=== PATIENT | male | born 1985 | race Caucasian/White ===

== ENCOUNTER 2017-03-26 06:55 | Emergency (ER) | payer BC ==
[~2017-03-26] VITALS: Ht 188 cm; Wt 145.7 kg
[2017-03-26 07:03] VITALS: TEMP 37.1; Ht 188 cm; Wt 145.7 kg
[2017-03-26] MEDS ORDERED: XYLOCAINE 1%/SOD BICARB 20 ML VIAL INFIL ONE (07:13)
[2017-03-26 08:01] VITALS: BP 148/88; PULSE 72; O2SAT 98
--- NOTE | 2017-03-26 16:58 | EMERGENCY ROOM VISIT NOTE ---
ED Visit Note First contact with patient: 07:07 Chief Complaint: I slipped in the shower and cut my face. History of Present Illness: Mr. Busby is a 32-year-old white male who ambulates into the ED complaining of facial lacerations following a fall in the shower. Patient reports approximately 45 minutes ago he slipped while showering and struck his head he believes on the faucet. He reports at the time of the fall and he was not experiencing any lightheadedness and dizziness, at the time of the fall he had no loss of consciousness and since the fall he denies all signs of head injury. Prior to arrival at the hospital he did wash and control bleeding of his wounds. State with his laceration he reports he has pain in the area of his laceration. He describes this as a stinging sensation. He rates his discomfort 5/10. His pain is nonradiating. His pain worsens with palpation. He has not identified any alleviating factors related to the pain. He has not taken any medication for pain prior to arrival at the hospital. Review of Systems: As noted above in history of present illness. Past Medical History: Status post cleft lip repair and appendectomy. Current Medications: Patient denies. Allergies to Medications: Patient denies. Social History: Patient is currently employed; he feels safe in his home environment; he denies tobacco use and admits to social alcohol use. Tetanus Immunization Status: Patient reports 2011. Physical Examination: Vital Signs: Date Time Temp Pulse Resp B/P (MAP) Pulse Ox O2 Delivery O2 Flow Rate FiO2 03/26/17 08:01 72 18 148/88 98 03/26/17 07:03 37.1 95 20 158/92 96 Room Air GENERAL: 32-year-old male in mild distress due to pain, nontoxic-appearing, afebrile and hemodynamically stable. NEUROLOGICAL: Awake, alert and oriented to person, place and time. Answering questions appropriately and following commands. Normal gait. Good hand eye coordination. Cranial nerves II through XII grossly intact. Good short-term and long-term recall. Able to spell and count backwards. SKIN: Warm, dry and pink. Face: Over the medial aspect of the right eyebrow patient has a 2.2 cm full-thickness laceration and over the proximal nose patient has a 0.3 cm superficial laceration. Neither lacerations are bleeding at this time. HEENT: Atraumatic and normocephalic. No raccoon's eyes or lopez signs. No drainage from the ears or nostril; no hemotympanum face: Soft tissue injuries as noted above. No bony tenderness, bony crepitus, swelling or ecchymosis. PERRLA. EOMI without nystagmus. No malocclusion. No intraoral trauma. Airway patent. Speech is normal. Trachea midline. No jugular venous distention. BACK: No tenderness over the bony cervical and thoracic spine. Full range of motion of the cervical spine. No CVA tenderness. ED Course: Patient is assessed as noted above. Patient's medication list was reviewed. Wound Repair: Complexity: Basic Verbal consent was obtained after the risks and benefits were explained. The skin was prepped with betadine and a sterile field set. Wound edges of the wound was anesthetized with 2.3 ml buffered 1% lidocaine. The wounds were explored for foreign bodies and none found. Copious irrigation was performed using sterile saline. With direct pressure the bleeding subsided. Debridement was not performed. The wound edges of the eyebrow laceration were approximated using 6-0 Ethilon with 6 simple interrupted sutures. The superficial thickness wound on the nose did not eat approximation. Hemostasis and excellent approximation was achieved. Antibacterial ointment applied. No complications and the patient tolerated the procedure well. Patient was educated about tonight's findings and instructed on his treatment plan; he verbalizes understanding and agreement with this plan. Clinical Impression: Lacerations of the right eyebrow and nose. Status post fall. Disposition: Patient discharged home in stable condition; prior to departure he was reassessed and subjectively reported he was pain and symptom-free. Plan: Comfort measures, wound care, signs of infection and signs of head injury were discussed with the patient. Patient was encouraged to follow-up with PCP or return to the ED for signs of infection and/or suture removal. Patient was encouraged to avoid alcohol use. Patient was encouraged return ED for any signs of head injury or any new/ concerning symptoms.
== END 2017-03-26 08:02 | disposition home or self-care (01) ==
LOC: C.EDB 06:57 → C.EDA 08:02
DX: S01.111A Laceration without foreign body of right eyelid and periocular area, initial encounter (principal); S01.21XA Laceration without foreign body of nose, initial encounter; W18.2XXA Fall in (into) shower or empty bathtub, initial encounter; Y93.E1 Activity, personal bathing and showering